=== PATIENT | male | born 1985 | race Caucasian/White ===

== ENCOUNTER 2025-02-16 18:18 | Emergency (ER) | payer SELFPAY ==
[~2025-02-16] VITALS: Ht 175.3 cm; Wt 78.0 kg
[2025-02-16 18:21] VITALS: BP 153/92; PULSE 105; RESP 18; TEMP 36.9; O2SAT 98
[2025-02-16] MEDS ORDERED: BACITRACIN ZINC OINT UDPKT TOP ONE (19:00)
[2025-02-16] MEDS ORDERED: ACETAMINOPHEN 325MG TABLET PO ONE (19:00)
== END 2025-02-16 19:18 | disposition left against medical advice (07) ==
LOC: ER 18:18
DX: S01.01XA Laceration without foreign body of scalp, initial encounter (principal); X58.XXXA Exposure to other specified factors, initial encounter; Y93.89 Activity, other specified; Y92.89 Other specified places as the place of occurrence of the external cause; Y99.8 Other external cause status
CPT/HCPCS: 99283